=== PATIENT | male | born 1960 | race Caucasian/White ===

== ENCOUNTER 2020-03-10 13:58 | Emergency (ER) | payer BC ==
[~2020-03-10] VITALS: Ht 129.5 cm; Wt 52.2 kg
[2020-03-10 14:20] VITALS: BP 122/85
--- NOTE | 2020-03-10 14:20 | NUR ---
ED Nurse Note: Pt walked in to ED from Dr. Hook's office for possible antibody infusion for Covid. Pt was tested positive for Covid today. No SOB/ fever. AAOx4, verbally responsive, on room air.
[2020-03-10] MEDS: Bamlanivimab Fact Sheet MISC ONE (15:00)
--- NOTE | 2020-03-10 15:05 | NUR ---
ED Nurse Note: Report received from MAGDALENA Barr.
[2020-03-10] MEDS: Bamlanivimab 700 MG in NS 275 ML IVPB SCH (16:02)
--- NOTE | 2020-03-10 16:09 | Emergency Room Report ---
History of Present Illness General Chief Complaint: General Complaint Source: Patient Present Illness HPI 59 YO Male presents to the ED c/o having tested positive for COVID-19 today and having high risk comorbidities. Pt. was sent to the ED by his for consideration of monoclonal antibody infusion. Pt. denies having any fevers or chills today he denies shortness of breath. He reports onset of cough x 4 days. 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 Denies CP, palpitations, dizziness, sudden onset of a AG, Neck pain or neck stiffness. Allergies: Coded Allergies: No Known Allergies (Unverified , 03/10/20) COVID-19 Screening Contact w/high risk pt: No Experienced COVID-19 symptoms?: No COVID-19 Testing performed PRODUCT DESIGNER: No Patient History Past Medical History: see triage record, DM Social History: Reports: smoking Immunizations: UTD Reviewed Nursing Documentation: PMH: Agreed; PSxH: Agreed Nursing Documentation-PMH Hx Diabetes: Yes Review of Systems All Other Systems: negative except mentioned in HPI Physical Exam Vital Signs Date Time Temp Pulse Resp B/P (MAP) Pulse Ox O2 Delivery O2 Flow Rate FiO2 03/10/20 14:09 97.9 77 19 122/85 (97) 98 Room Air Sp02 EP Interpretation: reviewed, normal General Appearance: no apparent distress, alert, GCS 15, non-toxic Head: normocephalic, atraumatic Eyes: bilateral eye normal inspection, bilateral eye PERRL ENT: hearing grossly normal, normal voice Neck: full range of motion Respiratory: chest non-tender, lungs clear, normal breath sounds, no respiratory distress, no accessory muscle use, no wheezing, speaking full sent[place] parker Cardiovascular #1: regular rate, rhythm, no edema, normal capillary refill Musculoskeletal: normal range of motion, gait/station normal, non-tender Neurologic: alert, motor strength/tone normal, oriented x3, sensory intact, responsive, speech normal Psychiatric: judgement/insight normal Skin: normal color Medical Decision Making PA Attestation Dr. Rowe Is my supervising Physician whom patient management has been discussed with. Diagnostic Impression: Primary Impression: COVID-19 Additional Impression: Encounter for medication administration ER Course 59 YO Male presents to the ED c/o having tested positive for COVID-19 today and having high risk comorbidities. Pt. was sent to the ED by his for consideration of monoclonal antibody infusion. Pt. denies having any fevers or chills today he denies shortness of breath. He reports onset of cough x 4 days. 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 Denies CP, palpitations, dizziness, sudden onset of a AG, Neck pain or neck stiffness. Ddx considered but are not limited to URI, pneumonia, PE, strep pharyngitis, meningitis, COVID-19 Vital signs: Pt. is afebrile, the remaining VS are WNL H&PE are most consistent with Viral URI- no meningeal signs, oropharynx is not involved, no evidence of bacterial infection at this time. --COVID-19 is suspected given occurrence during peak pandemic as well as positive close family member. The patient is nontoxic in appearance in no acute distress. No increased respiratory effort, and does not demonstrate been in respiratory distress or needing supplemental oxygen at this time ORDERS: none required at this time, the diagnosis is clinical ED INTERVENTIONS: - Reviewed/ d/w pt. the Bamlanivimab Drug fact sheet for patients who are considering receiving IV infusion. Pt. understands and is aware that this treatment has Authorization from the FDA for Emergency Use and is still undergoing full testing and monitoring before it can be fully authorized by the FDA. Pt. also understands that this medication is intended to reduce or prevent need for severe hospitalization and invasive interventions that are known to arise in high risk patients who are infected with the NCoV-2019. This patient has decided to move forward and receive the infusion of Bamlanivimab here in the ED. Infusion is administered via IV over the duration of 1 hour. The patient is monitored and observed for any reactions to infusion that require intervention, the patient did not have any reactions. Pt. was given their own copy of the Bamlanivimab fact sheet to take home. This patient was evaluated in the context of the global COVID-19 pandemic, which necessitated consideration that the patient might be at risk for infection with the SARS-COV-2 virus that causes COVID-19. Institutional protocols and algorithms that pertaining to the evaluation of patients at risk for COVID-19 are in a state of rapid change based on information released by multiple regulatory bodies including the CDC and federal and state organizations. These policies and algorithms were followed during the patient's care in the emergency department -I do not identify an emergent condition at this time. With current presentation, pt. is stable for close outpatient follow up and conservative treatment. D/w pt. to return promptly to ED with worsening or new symptoms.- Pt. verbalizes' understanding and agreement with proposed treatment plan. DISCHARGE: At this time pt. is stable for d/c to home. Will provide printed patient care instructions, and any necessary prescriptions. Care plan and follow up instructions have been discussed with the patient prior to discharge. Last Vital Signs Date Time Temp Pulse Resp B/P (MAP) Pulse Ox O2 Delivery O2 Flow Rate FiO2 03/10/20 14:20 97.9 78 19 122/85 98 Room Air Disposition: HOME, SELF-CARE Condition: Stable Additional Instructions: Take medications as directed. Follow up with a Primary Care Provider in 3-5 days, even if your symptoms have resolved. Return sooner to ED if new symptoms occur, or current symptoms become worse. - Please note that this Emergency Department Report was dictated using [employer]ightfulin[employer] specialist technology software, occasionally this can lead to erro neous entry secondary to interpretation by the dictation equipment. Phyllis Bowers Mar 10, 2020 16:09
--- NOTE | 2020-03-10 16:30 | NUR ---
ED Nurse Note: Patient is tolerating infusion well. No signs of adverse reaction at this time. IV site is dry/clean/intact; no rash on arm.
[2020-03-10 17:45] VITALS: BP 117/78
--- NOTE | 2020-03-10 17:45 | NUR ---
ED Nurse Note: No reaction noted from infusion. Patient is breathing normal and unlabored. Vital signs are stable. Patient is walking around RME room and wants to go home. ERPA notified.
[2020-03-10 17:50] VITALS: BP 116/79
--- NOTE | 2020-03-10 17:50 | NUR ---
ER DISCHARGE NOTE: Patient is cleared to be discharged per ERMD, pt is aox4, on room air, with stable vital signs. pt was given dc instructions, pt was able to verbalize understanding, pt id band and iv site removed without complications. pt is able to ambulate with steady gait. pt took all belongings.
== END 2020-03-10 17:50 | disposition home or self-care (01) ==
LOC: EMR 15:35
DX: U07.1 COVID-19 (principal); Z76.89 Persons encountering health services in other specified circumstances
CPT/HCPCS: 96365; 99284; J7050; Q0239